=== PATIENT | male | born 1960 | race Hispanic/Latino ===

== ENCOUNTER 2022-06-02 13:26 | Inpatient (IN) | payer SELFPAY ==
[2022-06-02] VITALS (46 sets, daily range): BP systolic 129–185; BP diastolic 67–102
[~2022-06-02] VITALS: Ht 160 cm; Wt 72.2 kg
[~2022-06-02 13:26] MED LIST: EC-NAPROSYN500 MG PO; FE TABS325 MG PO; VIT B 12
[2022-06-02 15:52] LABS: ALBUMIN 3.3 g/dL (3.2-5.0); ALKALINE PHOSPHATASE 149 u/l (38-126); AMYLASE 44 u/l (30-110); ANION GAP 7 (6-22 (CALC)); BILIRUBIN, TOTAL 0.9 mg/dL (0.2-1.3); BUN 17 mg/dL (8-23); BUN/CREATININE RATIO 19 (12-20 (CALC)); CARBON DIOXIDE 28 mmol/l (22-30); CHLORIDE 101 mmol/l (95-108); CREATININE 0.9 mg/dL (0.7-1.3); GFR FOR AFR.AMER. > 60 ML/MIN (>=60 (CALC)); GFR OTHER RACES > 60 ML/MIN (>=60 (CALC)); LIPASE 27 u/l (23-300); POTASSIUM 3.9 mmol/l (3.5-5.1); SGOT/AST 62 u/l (19-48); SODIUM 131 mmol/l (137-146); TOTAL PROTEIN 7.7 g/dL (6.3-8.2)
[2022-06-02 16:16] LABS: EOS% 3.9 % (0-8); HEMOGLOBIN 11.1 g/dl (14.0-18.0); LYMPH% 78.6 % (15-41); MEAN CELL VOLUME 77.3 fL CALC (80.0-100.0); MEAN CORPUSCULAR HGB 25.2 pG CALC (26.0-32.0); MEAN CORPUSCULAR HGB CONC 32.6 g/dL CAL (32.0-36.0); MONO% 14.6 % (2-13); NEUT# 0.02 thou/uL (1.82-7.42); NEUT% 1.9 % (42-76); RED BLOOD COUNT 4.4 mill/uL (4.70-6.10); RED CELL DISTRI WIDTH 17.2 % (11.5-15.5)
[2022-06-02 18:09] LABS: URINE BLOOD DIPSTICK TRACE-INTACT (NEGATIVE); URINE GLUCOSE - DIPSTICK NEGATIVE (NEGATIVE); URINE KETONE NEGATIVE (NEGATIVE); URINE LEUK ESTERASE NEGATIVE (NEGATIVE); URINE PH 6.5 (4.5-8.0); URINE PROTEIN - DIPSTICK 100 mg/dL (NEG-TRACE)
[2022-06-02 18:12] LABS: URINE BILIRUBIN - DIPSTICK SMALL (NEGATIVE); URINE COLOR DK. YELLOW; URINE EPITHELIAL CELLS FEW EPI/hpf (0-FEW); URINE MUCUS MODERATE hpf (NONE-FEW); URINE NITRITE - DIPSTICK NEGATIVE (Negative); URINE RBC 0-2 RBC/hpf (0-5)
[2022-06-03] VITALS (26 sets, daily range): BP systolic 122–184; BP diastolic 58–98
[2022-06-03 02:33] LABS: HEMATOCRIT 33.8 % (39.0-50.0); MEAN CELL VOLUME 77.9 fL CALC (80.0-100.0); MEAN CORPUSCULAR HGB 25.3 pG CALC (26.0-32.0); MEAN CORPUSCULAR HGB CONC 32.5 g/dL CAL (32.0-36.0); RED BLOOD COUNT 4.34 mill/uL (4.70-6.10); RED CELL DISTRI WIDTH 17.1 % (11.5-15.5)
[2022-06-03 02:55] LABS: ALBUMIN 2.7 g/dL (3.2-5.0); ALKALINE PHOSPHATASE 132 u/l (38-126); ANION GAP 7 (6-22 (CALC)); BILIRUBIN, TOTAL 0.9 mg/dL (0.2-1.3); BUN 20 mg/dL (8-23); BUN/CREATININE RATIO 26 (12-20 (CALC)); CALCULATED LDLCHOLESTEROL 45 mg/dL (62-129 (CALC)); CARBON DIOXIDE 28 mmol/l (22-30); CHLORIDE 101 mmol/l (95-108); CHOLESTEROL HDL RATIO 5.5 (<4.4 (CALC)); CREATININE 0.8 mg/dL (0.7-1.3); GFR FOR AFR.AMER. > 60 ML/MIN (>=60 (CALC)); GFR OTHER RACES > 60 ML/MIN (>=60 (CALC)); HDL CHOLESTEROL 18 mg/dL (39.0-59.0); MAGNESIUM 1.9 mg/dL (1.6-2.3); POTASSIUM 3.3 mmol/l (3.5-5.1); SGOT/AST 35 u/l (19-48); SODIUM 132 mmol/l (137-146); TOTAL CHOLESTEROL 97 mg/dl (0-199); TOTAL PROTEIN 6.4 g/dL (6.3-8.2); TOTAL TRIGLYCERIDES 171 mg/dl (0-149); VLDL CHOLESTROL 34 mg/dl (4-45 (CALC))
[2022-06-04] VITALS (16 sets, daily range): BP systolic 118–176; BP diastolic 51–96
[2022-06-04 05:09] LABS: ALBUMIN 2.6 g/dL (3.2-5.0); ALKALINE PHOSPHATASE 156 u/l (38-126); ANION GAP 7 (6-22 (CALC)); BUN 17 mg/dL (8-23); BUN/CREATININE RATIO 22 (12-20 (CALC)); CARBON DIOXIDE 27 mmol/l (22-30); CHLORIDE 99 mmol/l (95-108); CREATININE 0.8 mg/dL (0.7-1.3); GFR FOR AFR.AMER. > 60 ML/MIN (>=60 (CALC)); GFR OTHER RACES > 60 ML/MIN (>=60 (CALC)); MAGNESIUM 1.8 mg/dL (1.6-2.3); POTASSIUM 3.6 mmol/l (3.5-5.1); SGOT/AST 26 u/l (19-48); SODIUM 130 mmol/l (137-146); TOTAL PROTEIN 6.3 g/dL (6.3-8.2)
[2022-06-04 05:12] LABS: BILIRUBIN, TOTAL 1.3 mg/dL (0.2-1.3)
[2022-06-04 05:15] LABS: BASO% 1.4 % (0-3); EOS% 2.9 % (0-8); HEMATOCRIT 33.1 % (39.0-50.0); HEMOGLOBIN 10.7 g/dl (14.0-18.0); IMMATURE GRANULOCYTES 2.9 % (0.0-5.0); LYMPH% 68.1 % (15-41); MEAN CELL VOLUME 78.4 fL CALC (80.0-100.0); MEAN CORPUSCULAR HGB 25.4 pG CALC (26.0-32.0); MEAN CORPUSCULAR HGB CONC 32.3 g/dL CAL (32.0-36.0); MONO% 21.7 % (2-13); NEUT# 0.02 thou/uL (1.82-7.42); RED BLOOD COUNT 4.22 mill/uL (4.70-6.10); RED CELL DISTRI WIDTH 17.3 % (11.5-15.5)
[2022-06-05 02:12] VITALS: BP 123/70
[2022-06-05 03:59] LABS: HEMATOCRIT 32.4 % (39.0-50.0); HEMOGLOBIN 10.6 g/dl (14.0-18.0); MEAN CELL VOLUME 78.3 fL CALC (80.0-100.0); MEAN CORPUSCULAR HGB 25.6 pG CALC (26.0-32.0); MEAN CORPUSCULAR HGB CONC 32.7 g/dL CAL (32.0-36.0); RED BLOOD COUNT 4.14 mill/uL (4.70-6.10); RED CELL DISTRI WIDTH 17.1 % (11.5-15.5)
[2022-06-05 04:05] LABS: ALBUMIN 2.8 g/dL (3.2-5.0); ALKALINE PHOSPHATASE 157 u/l (38-126); ANION GAP 6 (6-22 (CALC)); BILIRUBIN, TOTAL 1.1 mg/dL (0.2-1.3); BUN 18 mg/dL (8-23); BUN/CREATININE RATIO 17 (12-20 (CALC)); CARBON DIOXIDE 28 mmol/l (22-30); CHLORIDE 98 mmol/l (95-108); GFR FOR AFR.AMER. > 60 ML/MIN (>=60 (CALC)); GFR OTHER RACES > 60 ML/MIN (>=60 (CALC)); POTASSIUM 3.5 mmol/l (3.5-5.1); SGOT/AST 29 u/l (19-48); SODIUM 129 mmol/l (137-146); TOTAL PROTEIN 6.7 g/dL (6.3-8.2)
[2022-06-05 04:31] VITALS: BP 147/74
[2022-06-05 07:13] VITALS: BP 143/68
[2022-06-05 10:53] VITALS: BP 159/85
[2022-06-05 14:47] VITALS: BP 129/66
[2022-06-05 19:00] VITALS: BP 124/67
[2022-06-06] VITALS (7 sets, daily range): BP systolic 117–157; BP diastolic 68–87
[2022-06-06 06:16] LABS: ALBUMIN 2.6 g/dL (3.2-5.0); ALKALINE PHOSPHATASE 135 u/l (38-126); ANION GAP 7 (6-22 (CALC)); BILIRUBIN, TOTAL 0.9 mg/dL (0.2-1.3); BUN 17 mg/dL (8-23); BUN/CREATININE RATIO 24 (12-20 (CALC)); CARBON DIOXIDE 29 mmol/l (22-30); CHLORIDE 96 mmol/l (95-108); CREATININE 0.7 mg/dL (0.7-1.3); GFR FOR AFR.AMER. > 60 ML/MIN (>=60 (CALC)); GFR OTHER RACES > 60 ML/MIN (>=60 (CALC)); MAGNESIUM 2.1 mg/dL (1.6-2.3); POTASSIUM 3.9 mmol/l (3.5-5.1); SGOT/AST 27 u/l (19-48); SODIUM 128 mmol/l (137-146); TOTAL PROTEIN 6.6 g/dL (6.3-8.2)
[2022-06-06 06:47] LABS: BASO% 0.9 % (0-3); HEMATOCRIT 32.7 % (39.0-50.0); HEMOGLOBIN 10.6 g/dl (14.0-18.0); IMMATURE GRANULOCYTES 2.8 % (0.0-5.0); MEAN CORPUSCULAR HGB 25.6 pG CALC (26.0-32.0); MEAN CORPUSCULAR HGB CONC 32.4 g/dL CAL (32.0-36.0); MONO% 24.8 % (2-13); NEUT# 0.05 thou/uL (1.82-7.42); NEUT% 4.5 % (42-76); RED BLOOD COUNT 4.14 mill/uL (4.70-6.10); RED CELL DISTRI WIDTH 17.6 % (11.5-15.5)
[2022-06-07] VITALS (7 sets, daily range): BP systolic 144–175; BP diastolic 73–91
[2022-06-07 06:15] LABS: HEMATOCRIT 30.3 % (39.0-50.0); HEMOGLOBIN 10.1 g/dl (14.0-18.0); MEAN CELL VOLUME 76.9 fL CALC (80.0-100.0); MEAN CORPUSCULAR HGB 25.6 pG CALC (26.0-32.0); MEAN CORPUSCULAR HGB CONC 33.3 g/dL CAL (32.0-36.0); RED BLOOD COUNT 3.94 mill/uL (4.70-6.10); RED CELL DISTRI WIDTH 17.2 % (11.5-15.5)
[2022-06-07 06:44] LABS: ALBUMIN 2.5 g/dL (3.2-5.0); ALKALINE PHOSPHATASE 141 u/l (38-126); ANION GAP 8 (6-22 (CALC)); BUN 13 mg/dL (8-23); BUN/CREATININE RATIO 18 (12-20 (CALC)); CARBON DIOXIDE 25 mmol/l (22-30); CHLORIDE 96 mmol/l (95-108); CREATININE 0.7 mg/dL (0.7-1.3); GFR FOR AFR.AMER. > 60 ML/MIN (>=60 (CALC)); GFR OTHER RACES > 60 ML/MIN (>=60 (CALC)); MAGNESIUM 1.8 mg/dL (1.6-2.3); SGOT/AST 36 u/l (19-48); SODIUM 126 mmol/l (137-146); TOTAL PROTEIN 6.2 g/dL (6.3-8.2)
[2022-06-08] VITALS (7 sets, daily range): BP systolic 133–174; BP diastolic 73–91
[2022-06-08 05:36] LABS: HEMOGLOBIN 10.2 g/dl (14.0-18.0); MEAN CELL VOLUME 76.7 fL CALC (80.0-100.0); MEAN CORPUSCULAR HGB 25.2 pG CALC (26.0-32.0); MEAN CORPUSCULAR HGB CONC 32.9 g/dL CAL (32.0-36.0); RED BLOOD COUNT 4.04 mill/uL (4.70-6.10); RED CELL DISTRI WIDTH 17.1 % (11.5-15.5)
[2022-06-08 05:48] LABS: ALBUMIN 2.3 g/dL (3.2-5.0); ALKALINE PHOSPHATASE 131 u/l (38-126); ANION GAP 9 (6-22 (CALC)); BUN 12 mg/dL (8-23); BUN/CREATININE RATIO 16 (12-20 (CALC)); CARBON DIOXIDE 25 mmol/l (22-30); CHLORIDE 97 mmol/l (95-108); CREATININE 0.7 mg/dL (0.7-1.3); GFR FOR AFR.AMER. > 60 ML/MIN (>=60 (CALC)); GFR OTHER RACES > 60 ML/MIN (>=60 (CALC)); MAGNESIUM 1.9 mg/dL (1.6-2.3); POTASSIUM 4.4 mmol/l (3.5-5.1); SODIUM 126 mmol/l (137-146); TOTAL PROTEIN 5.9 g/dL (6.3-8.2)
[2022-06-08 05:50] LABS: BILIRUBIN, TOTAL 0.5 mg/dL (0.2-1.3); SGOT/AST 67 u/l (19-48)
[2022-06-09] VITALS (7 sets, daily range): BP systolic 141–155; BP diastolic 68–86
[2022-06-09 05:51] LABS: ALBUMIN 2.3 g/dL (3.2-5.0); ALKALINE PHOSPHATASE 152 u/l (38-126); ANION GAP 7 (6-22 (CALC)); BILIRUBIN, TOTAL 0.4 mg/dL (0.2-1.3); BUN 12 mg/dL (8-23); BUN/CREATININE RATIO 15 (12-20 (CALC)); CARBON DIOXIDE 25 mmol/l (22-30); CHLORIDE 99 mmol/l (95-108); CREATININE 0.8 mg/dL (0.7-1.3); GFR FOR AFR.AMER. > 60 ML/MIN (>=60 (CALC)); GFR OTHER RACES > 60 ML/MIN (>=60 (CALC)); HEMOGLOBIN 9.9 g/dl (14.0-18.0); MEAN CELL VOLUME 77.5 fL CALC (80.0-100.0); MEAN CORPUSCULAR HGB 25.6 pG CALC (26.0-32.0); POTASSIUM 4.8 mmol/l (3.5-5.1); RED BLOOD COUNT 3.87 mill/uL (4.70-6.10); RED CELL DISTRI WIDTH 17.3 % (11.5-15.5); SGOT/AST 49 u/l (19-48); SODIUM 127 mmol/l (137-146)
[2022-06-10] VITALS (8 sets, daily range): BP systolic 124–179; BP diastolic 69–83
[2022-06-10 06:10] LABS: ALBUMIN 2.2 g/dL (3.2-5.0); ALKALINE PHOSPHATASE 170 u/l (38-126); ANION GAP 7 (6-22 (CALC)); BILIRUBIN, TOTAL 0.5 mg/dL (0.2-1.3); BUN 10 mg/dL (8-23); BUN/CREATININE RATIO 13 (12-20 (CALC)); CARBON DIOXIDE 25 mmol/l (22-30); CHLORIDE 98 mmol/l (95-108); CREATININE 0.8 mg/dL (0.7-1.3); GFR FOR AFR.AMER. > 60 ML/MIN (>=60 (CALC)); GFR OTHER RACES > 60 ML/MIN (>=60 (CALC)); POTASSIUM 4.7 mmol/l (3.5-5.1); SGOT/AST 48 u/l (19-48); SODIUM 126 mmol/l (137-146); TOTAL PROTEIN 5.8 g/dL (6.3-8.2)
[2022-06-10 06:45] LABS: BASO% 0.6 % (0-3); EOS% 4.8 % (0-8); HEMATOCRIT 28.6 % (39.0-50.0); HEMOGLOBIN 9.5 g/dl (14.0-18.0); IMMATURE GRANULOCYTES 0.6 % (0.0-5.0); LYMPH% 52.7 % (15-41); MEAN CELL VOLUME 77.1 fL CALC (80.0-100.0); MEAN CORPUSCULAR HGB 25.6 pG CALC (26.0-32.0); MEAN CORPUSCULAR HGB CONC 33.2 g/dL CAL (32.0-36.0); MONO% 35.2 % (2-13); NEUT# 0.1 thou/uL (1.82-7.42); NEUT% 6.1 % (42-76); RED BLOOD COUNT 3.71 mill/uL (4.70-6.10); RED CELL DISTRI WIDTH 17.1 % (11.5-15.5)
[2022-06-11] VITALS (8 sets, daily range): BP systolic 135–172; BP diastolic 70–89
[2022-06-11 06:09] LABS: HEMATOCRIT 28.4 % (39.0-50.0); HEMOGLOBIN 9.4 g/dl (14.0-18.0); IMMATURE GRANULOCYTES 0.5 % (0.0-5.0); MEAN CELL VOLUME 77.6 fL CALC (80.0-100.0); MEAN CORPUSCULAR HGB 25.7 pG CALC (26.0-32.0); MEAN CORPUSCULAR HGB CONC 33.1 g/dL CAL (32.0-36.0); MONO% 32.8 % (2-13); NEUT# 0.17 thou/uL (1.82-7.42); NEUT% 8.7 % (42-76); RED BLOOD COUNT 3.66 mill/uL (4.70-6.10); RED CELL DISTRI WIDTH 17.5 % (11.5-15.5)
[2022-06-11 06:24] LABS: ALBUMIN 2.2 g/dL (3.2-5.0); ALKALINE PHOSPHATASE 157 u/l (38-126); ANION GAP 8 (6-22 (CALC)); BILIRUBIN, TOTAL 0.5 mg/dL (0.2-1.3); BUN 11 mg/dL (8-23); BUN/CREATININE RATIO 13 (12-20 (CALC)); CARBON DIOXIDE 25 mmol/l (22-30); CHLORIDE 96 mmol/l (95-108); CREATININE 0.9 mg/dL (0.7-1.3); GFR FOR AFR.AMER. > 60 ML/MIN (>=60 (CALC)); GFR OTHER RACES > 60 ML/MIN (>=60 (CALC)); POTASSIUM 4.8 mmol/l (3.5-5.1); SGOT/AST 39 u/l (19-48); SODIUM 125 mmol/l (137-146); TOTAL PROTEIN 5.8 g/dL (6.3-8.2)
[2022-06-11] MEDS ORDERED: LEVOFLOXACIN500MG PO (16:37)
[2022-06-11] MEDS ORDERED: BACTRIM DS1 TAB PO (16:37)
[2022-06-11] MEDS ORDERED: PANTOPRAZOLE SO40 M1 PO (16:37)
[2022-06-11] MEDS ORDERED: NORVASC5 M1 PO (16:39)
[2022-06-12 05:10] VITALS: BP 140/71
[2022-06-12 05:45] LABS: HEMATOCRIT 27.2 % (39.0-50.0); HEMOGLOBIN 9.1 g/dl (14.0-18.0); MEAN CELL VOLUME 78.2 fL CALC (80.0-100.0); MEAN CORPUSCULAR HGB 26.1 pG CALC (26.0-32.0); MEAN CORPUSCULAR HGB CONC 33.5 g/dL CAL (32.0-36.0); RED BLOOD COUNT 3.48 mill/uL (4.70-6.10); RED CELL DISTRI WIDTH 17.3 % (11.5-15.5)
[2022-06-12 06:22] VITALS: BP 137/71
[2022-06-12 06:23] LABS: ALBUMIN 2.5 g/dL (3.2-5.0); ALKALINE PHOSPHATASE 152 u/l (38-126); ANION GAP 5 (6-22 (CALC)); BILIRUBIN, TOTAL 0.6 mg/dL (0.2-1.3); BUN 11 mg/dL (8-23); BUN/CREATININE RATIO 13 (12-20 (CALC)); CARBON DIOXIDE 28 mmol/l (22-30); CHLORIDE 96 mmol/l (95-108); CREATININE 0.9 mg/dL (0.7-1.3); GFR FOR AFR.AMER. > 60 ML/MIN (>=60 (CALC)); GFR OTHER RACES > 60 ML/MIN (>=60 (CALC)); POTASSIUM 4.6 mmol/l (3.5-5.1); SGOT/AST 52 u/l (19-48); SODIUM 124 mmol/l (137-146); TOTAL PROTEIN 6.3 g/dL (6.3-8.2)
[2022-06-12 10:10] VITALS: BP 140/72
[2022-06-12 14:25] VITALS: BP 134/72
[2022-06-12 18:45] VITALS: BP 122/62
[2022-06-12 23:59] VITALS: BP 127/66
[2022-06-13] VITALS (7 sets, daily range): BP systolic 125–160; BP diastolic 64–80
[2022-06-13 05:32] LABS: HEMATOCRIT 27.2 % (39.0-50.0); HEMOGLOBIN 8.9 g/dl (14.0-18.0); MEAN CELL VOLUME 77.9 fL CALC (80.0-100.0); MEAN CORPUSCULAR HGB 25.5 pG CALC (26.0-32.0); MEAN CORPUSCULAR HGB CONC 32.7 g/dL CAL (32.0-36.0); RED BLOOD COUNT 3.49 mill/uL (4.70-6.10); RED CELL DISTRI WIDTH 17.3 % (11.5-15.5)
[2022-06-13 05:54] LABS: ALBUMIN 2.4 g/dL (3.2-5.0); ALKALINE PHOSPHATASE 146 u/l (38-126); ANION GAP 6 (6-22 (CALC)); BILIRUBIN, TOTAL 0.4 mg/dL (0.2-1.3); BUN 12 mg/dL (8-23); BUN/CREATININE RATIO 15 (12-20 (CALC)); CARBON DIOXIDE 27 mmol/l (22-30); CHLORIDE 98 mmol/l (95-108); CREATININE 0.8 mg/dL (0.7-1.3); GFR FOR AFR.AMER. > 60 ML/MIN (>=60 (CALC)); GFR OTHER RACES > 60 ML/MIN (>=60 (CALC)); POTASSIUM 4.3 mmol/l (3.5-5.1); SGOT/AST 38 u/l (19-48); SODIUM 126 mmol/l (137-146)
[2022-06-14 04:11] VITALS: BP 134/71
[2022-06-14 06:27] LABS: EOS% 3.6 % (0-8); HEMATOCRIT 28.4 % (39.0-50.0); HEMOGLOBIN 9.2 g/dl (14.0-18.0); IMMATURE GRANULOCYTES 1.2 % (0.0-5.0); LYMPH% 39.9 % (15-41); MEAN CELL VOLUME 77.6 fL CALC (80.0-100.0); MEAN CORPUSCULAR HGB 25.1 pG CALC (26.0-32.0); MEAN CORPUSCULAR HGB CONC 32.4 g/dL CAL (32.0-36.0); MONO% 37.5 % (2-13); NEUT# 0.39 thou/uL (1.82-7.42); NEUT% 15.8 % (42-76); RED BLOOD COUNT 3.66 mill/uL (4.70-6.10); RED CELL DISTRI WIDTH 17.3 % (11.5-15.5)
[2022-06-14 06:29] LABS: ALBUMIN 2.3 g/dL (3.2-5.0); BUN 9 mg/dL (8-23); CARBON DIOXIDE 26 mmol/l (22-30); CHLORIDE 93 mmol/l (95-108); CREATININE 0.8 mg/dL (0.7-1.3); GFR FOR AFR.AMER. > 60 ML/MIN (>=60 (CALC)); GFR OTHER RACES > 60 ML/MIN (>=60 (CALC)); POTASSIUM 4.4 mmol/l (3.5-5.1); SODIUM 122 mmol/l (137-146)
[2022-06-14 06:30] VITALS: BP 129/65
[2022-06-14] MEDS ORDERED: ITRACONAZOLE PO (09:59)
[2022-06-14 10:00] VITALS: BP 137/70
== END 2022-06-14 13:11 | disposition home or self-care (01) | DRG 975 ==
LOC: ED 13:26 → ED-I 18:55 → ED 19:11 → ED-I 19:11 → ED 19:12 → ICU 19:12 → MS2 19:12 → ICU 20:15 → MS2 20:15 → ED 20:25 → ICU 06-03 07:15 → MS2 06-03 07:15
PROVIDERS: Emergency Medicine; Internal Medicine; Internal Medicine Nephrology; ADMIT Internal Medicine; ATTEND Internal Medicine
DX: B20 Human immunodeficiency virus [HIV] disease (principal); B39.2 Pulmonary histoplasmosis capsulati, unspecified; J15.8 Pneumonia due to other specified bacteria; E87.1 Hypo-osmolality and hyponatremia; I47.1 Supraventricular tachycardia; I11.0 Hypertensive heart disease with heart failure; I50.9 Heart failure, unspecified; I48.91 Unspecified atrial fibrillation; E11.9 Type 2 diabetes mellitus without complications; D50.9 Iron deficiency anemia, unspecified; F10.20 Alcohol dependence, uncomplicated; K27.9 Peptic ulcer, site unspecified, unspecified as acute or chronic, without hemorrhage or perforation; D72.819 Decreased white blood cell count, unspecified; D70.9 Neutropenia, unspecified; Z72.51 High risk heterosexual behavior
CPT/HCPCS: J1650; J1756; Q3014; Q9967

== ENCOUNTER 2022-07-20 14:45 | Emergency (ER) | payer SELFPAY ==
[2022-07-20] VITALS (14 sets, daily range): BP systolic 138–168; BP diastolic 74–89
[~2022-07-20] VITALS: Ht 154.9 cm; Wt 82.0 kg
[~2022-07-20 14:45] MED LIST changes: +BACTRIM DS1 TAB PO; +ITRACONAZOLE PO; +LEVOFLOXACIN500MG PO; +NORVASC5 M1 PO; +PANTOPRAZOLE SO40 M1 PO
[2022-07-20] MEDS ORDERED: DOVATO 50-300 M1 TAB (16:25)
[2022-07-20] MEDS ORDERED: SMZ-TMP1 M1 IV (16:25)
[2022-07-20] MEDS ORDERED: ZPAK PO (18:43)
== END 2022-07-20 19:00 | disposition home or self-care (01) | DRG 195 ==
LOC: ED 14:45
DX: J18.9 Pneumonia, unspecified organism (principal); R06.02 Shortness of breath

== ENCOUNTER 2024-04-29 14:17 | Emergency (ER) | payer SELFPAY ==
[2024-04-29] VITALS (23 sets, daily range): BP systolic 121–194; BP diastolic 67–130
[~2024-04-29] VITALS: Ht 154.9 cm; Wt 99.0 kg
[~2024-04-29 14:17] MED LIST changes: +DOVATO 50-300 M1 TAB; +NAPROXEN500 MG PO; +SMZ-TMP1 M1 IV; +ZPAK PO
[2024-04-29] MEDS ORDERED: MULTIPLE VITAMIN 10 ML,THIAMINE HCL 100 MG in SODIUM CHLORIDE 0.9% 1,000 ML IV ONE (14:25)
[2024-04-29 14:51] LABS: BASO% 0.3 % (0-3); EOS% 1.7 % (0-8); IMMATURE GRANULOCYTES 0.4 % (0.0-5.0); LYMPH% 47.5 % (15-41); MEAN CORPUSCULAR HGB 30.9 pG CALC (26.0-32.0); MEAN CORPUSCULAR HGB CONC 32.7 g/dL CAL (32.0-36.0); MONO% 11.6 % (2-13); NEUT# 3.67 thou/uL (1.82-7.42); NEUT% 38.5 % (42-76); RED BLOOD COUNT 4.37 mill/uL (4.70-6.10); RED CELL DISTRI WIDTH 12.6 % (11.5-15.5)
[2024-04-29 14:52] LABS: HEMATOCRIT 41.3 % (39.0-50.0); HEMOGLOBIN 13.5 g/dl (14.0-18.0); MEAN CELL VOLUME 94.5 fL CALC (80.0-100.0)
[2024-04-29 14:59] LABS: BILIRUBIN, TOTAL 0.4 mg/dL (0.2-1.3); CREATININE 0.8 mg/dL (0.7-1.3); POTASSIUM 3.7 mmol/l (3.5-5.1)
[2024-04-29 15:00] LABS: ALBUMIN 4.3 g/dL (3.2-5.0); TOTAL PROTEIN 8.3 g/dL (6.3-8.2)
[2024-04-29 15:07] LABS: URINE BILIRUBIN - DIPSTICK Negative (NEGATIVE); URINE BLOOD DIPSTICK Negative (NEGATIVE); URINE COLOR Yellow; URINE GLUCOSE - DIPSTICK Negative (NEGATIVE); URINE KETONE Negative (NEGATIVE); URINE LEUK ESTERASE Negative (NEGATIVE); URINE NITRITE - DIPSTICK Negative (Negative); URINE PROTEIN - DIPSTICK Negative (NEG-TRACE); URINE UROBILINOGEN - DIPSTICK 0.2 E.U./dL (0.2)
[2024-04-29] MEDS ORDERED: NALOXONE HCL 0.4 MG/ML 1ML AMP IV ONE (16:20)
== END 2024-04-29 20:20 | disposition home or self-care (01) | DRG 948 ==
LOC: ED 14:17
PROVIDERS: Nurse Practitioner
DX: R41.82 Altered mental status, unspecified (principal); L03.115 Cellulitis of right lower limb; I10 Essential (primary) hypertension; F17.200 Nicotine dependence, unspecified, uncomplicated; Z21 Asymptomatic human immunodeficiency virus [HIV] infection status
CPT/HCPCS: J3411